=== PATIENT | female | born 1985 | race Hispanic/Latino ===

== ENCOUNTER 2020-01-11 22:12 | Emergency (ER) | payer SELFPAY ==
[2020-01-11 22:44] VITALS: O2SAT 99
--- NOTE | 2020-01-11 23:14 | ED.PDOC ---
History of Present Illness - General Chief Complaint: General Stated Complaint: my head hurts and I ache all over Time Seen by Provider: 01/11/20 22:46 Source: patient, RN notes reviewed, Vital Signs reviewed Exam Limitations: no limitations - History of Present Illness Initial Comments: Patient is a 34-year-old white female who presents with complaints of body aches, headache and sore throat. This is been ongoing for a couple of days. Nothing makes it better or worse. Patient is also complaining of subjective fevers. Timing/Duration: other - 2-3 days Severity: moderate Improving Factors: nothing Worsening Factors: nothing Associated Symptoms: cough, fever/chills, headaches, malaise, weakness Allergies/Adverse Reactions: Allergies Penicillins Allergy (Verified 01/11/20 22:35) Home Medications: Ambulatory Orders Clindamycin HCl 300 mg PO QID #40 cap 01/11/20 Review of Systems - Review of Systems Constitutional: States: see HPI, chills, fever, malaise, weakness EENTM: States: no symptoms reported, throat pain. Denies: eye pain, blurred vision, double vision Respiratory: States: see HPI, cough. Denies: short of breath, stridor, wheezing Cardiology: States: no symptoms reported. Denies: chest pain, palpitations, syncope Gastrointestinal/Abdominal: States: no symptoms reported. Denies: abdominal pain, nausea, vomiting Genitourinary: States: no symptoms reported. Denies: dysuria, frequency Musculoskeletal: States: see HPI, joint pain. Denies: neck pain Skin: States: no symptoms reported. Denies: change in color, rash Neurological: States: see HPI, headache, weakness - generalized.. Denies: tingling, tremors Endocrine: States: no symptoms reported. Denies: increased hunger, increased thirst, increased urine Hematologic/Lymphatic: States: no symptoms reported All other Systems: Reviewed and Negative Past Medical History (General) - Patient Medical History Hx Seizures: No Hx Stroke: No Hx Dementia: No Hx Asthma: No Hx of COPD: No Hx Cardiac Disorders: No Hx Congestive Heart Failure: No Hx Pacemaker: No Hx Hypertension: No Hx Thyroid Disease: No Hx Diabetes: No Hx Gastroesophageal Reflux: No Hx Renal Disease: No Hx Cancer: No Hx of HIV: No Hx Hepatitis C: No Hx MRSA: No - Vaccination History Hx Tetanus, Diphtheria Vaccination: Yes Hx Influenza Vaccination: No Hx Pneumococcal Vaccination: No Immunizations Up to Date: No - Social History Hx Tobacco Use: Yes Hx Alcohol Use: Yes Hx Substance Use: No Hx Substance Use Treatment: No Hx Depression: No Family Medical History - Family History Mother Family History: Unknown Physical Exam - Physical Exam General Appearance: Alert, Anxious, Obvious distress, Well Developed, Well Groomed, Well Hydrated, Well Nourished Eye Exam: bilateral normal Ears, Nose, Throat: hearing grossly normal, pharyngeal erythema, tonsillar swelling Neck: non-tender, full range of motion, supple Respiratory: chest non-tender, lungs clear, normal breath sounds, no respiratory distress Cardiovascular/Chest: normal peripheral pulses, regular rate, rhythm, no edema Peripheral Pulses: radial,right: 2+, radial,left: 2+ Gastrointestinal/Abdominal: normal bowel sounds, non tender, soft, no organomegaly Back Exam: normal inspection, no CVA tenderness, no vertebral tenderness Extremity: normal range of motion, non-tender, normal inspection 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 01/11/20 23:16 Patient with a positive strep test. She is allergic to penicillin. We will start her on clindamycin. I discussed this plan of care with the patient and she voices understanding and agreement. Patient's COVID testing is pending and we will call her with results. Gabriel Sorensen M.D. #[id number] - Results/Orders Results/Orders: 01/11/20 22:35 RESPIRATORY PANEL 2 Stat Laboratory Results - last 24 hr 01/11/20 22:35 Group A Strep Rapid Positive H Vital Signs 01/11/20 22:25 Temperature 97.5 F L Pulse Rate [ 99 H monitor] Respiratory 20 Rate Blood Pressure 150/103 [Left Arm] O2 Sat by Pulse 99 Oximetry Departure - Departure Clinical Impression: Strep pharyngitis Fever Qualifiers: Fever type: unspecified Qualified Code(s): R50.9 - Fever, unspecified Time of Disposition: 23:18 Disposition: Discharge to Home or Self Care Condition: Good Departure Forms: ED Discharge - Pt. Copy, Patient Portal Self Enrollment Instructions: Strep Throat (DC) Diet: resume usual diet Activity: increase activity as tolerated Referrals: Winston Sesay MD [Primary Care Provider] - 1-5 Days Prescriptions: Clindamycin HCl 300 mg PO QID #40 cap Home Medications: Ambulatory Orders Clindamycin HCl 300 mg PO QID #40 cap 01/11/20
[2020-01-11] MEDS ORDERED: CLINDAMYCIN PHOSPHATE 150 MG/ML VIAL IM ONE (23:20)
[2020-01-11 23:36] VITALS: BP 138/84; TEMP 99.2
== END 2020-01-11 23:46 | disposition home or self-care (01) ==
LOC: ER 22:12
DX: J02.0 Streptococcal pharyngitis (principal); R51.9 Headache, unspecified; Z20.828 Contact with and (suspected) exposure to other viral communicable diseases; Z88.0 Allergy status to penicillin; Z87.891 Personal history of nicotine dependence
CPT/HCPCS: 87486; 87581; 87633; 87635; 87880; J3490

== ENCOUNTER 2020-02-09 06:42 | Emergency (ER) | payer SELFPAY ==
--- NOTE | 2020-02-09 07:26 | RAD ---
EXAM: Chest,1 View HISTORY: possible covid COMPARISON: None. TECHNIQUE: Chest 1 View AP FINDINGS: Evaluation more difficult due to patient body habitus. Heart size and pulmonary vessels within normal limits. Mild bilateral diffuse lung haziness may be related to patient body habitus and overlying chest wall/breast attenuation artifact. However, underlying subsegmental atelectasis, airspace pulmonary edema, and/or atypical infection cannot be ruled out. No pleural effusion, lung mass, or pneumothorax. Bones unremarkable. IMPRESSION: Mild diffuse bilateral lung haziness may be related to patient body habitus and overlying chest wall/breast attenuation artifact. However, underlying subsegmental atelectasis, airspace pulmonary edema, and/or atypical infection cannot be ruled out. Follow up chest radiograph 2 views (PA and lateral) in upright position with full inspiration in radiology department may be helpful. Electronically signed by: Noe Cosme MD 02/09/2020 7:25 AM [facility]
--- NOTE | 2020-02-09 07:59 | ED.PDOC ---
History of Present Illness - General Chief Complaint: Respiratory Problem Stated Complaint: SOB, cough, SHOEMAKER, chest tightness, sore throat Time Seen by Provider: 02/09/20 06:52 Source: patient Exam Limitations: no limitations - History of Present Illness Initial Comments: The patient is a 34-year-old female presented emergency room secondary to feeling of cough, sore throat and a mild runny nose as well as some mild body aches for last couple of days. The patient had fairly extensive coronavirus exposure about 5 days ago for a period of 6 hours. No hypoxia. No respiratory distress. No altered mental status. No rash. No syncope or near syncope. She does have a mild headache. She is alert and oriented x4. No evidence of encephalitis or meningitis otherwise. Timing/Duration: other - Couple of days Severity: mild Improving Factors: nothing Worsening Factors: nothing Associated Symptoms: cough, fever/chills - Reports low-grade, malaise Allergies/Adverse Reactions: Allergies Penicillins Allergy (Verified 01/11/20 22:35) Home Medications: Ambulatory Orders Clindamycin HCl 300 mg PO QID #40 cap 01/11/20 Azithromycin 500 mg PO DAILY #7 tab 02/09/20 Review of Systems - Review of Systems Constitutional: States: fever, malaise EENTM: States: nose congestion, throat pain Respiratory: States: cough Cardiology: States: no symptoms reported Gastrointestinal/Abdominal: States: no symptoms reported Genitourinary: States: no symptoms reported Musculoskeletal: States: no symptoms reported Skin: States: no symptoms reported Neurological: States: headache Endocrine: States: no symptoms reported All other Systems: No Change from Baseline Past Medical History (General) - Patient Medical History Hx Seizures: No Hx Stroke: No Hx Dementia: No Hx Asthma: No Hx of COPD: No Hx Cardiac Disorders: No Hx Congestive Heart Failure: No Hx Pacemaker: No Hx Hypertension: No Hx Thyroid Disease: No Hx Diabetes: No Hx Gastroesophageal Reflux: No Hx Renal Disease: No Hx Cancer: No Hx of HIV: No Hx Hepatitis C: No Hx MRSA: No Surgical History: cholecystectomy, other - Vaccination History Hx Tetanus, Diphtheria Vaccination: Yes Hx Influenza Vaccination: No Hx Pneumococcal Vaccination: No - Social History Hx Tobacco Use: Yes Hx Alcohol Use: No Hx Substance Use: No Hx Substance Use Treatment: No Hx Depression: No - Female History Patient is a Female of Child Bearing Age (10 -59 yrs old): Yes Patient : No Family Medical History - Family History Mother Family History: Unknown Living Status: Still Living Hx Family Hypertension: Yes Hx Family Diabetes: Yes Hx Family Cancer: Yes Physical Exam - Physical Exam General Appearance: Alert, Comfortable, No apparent distress Eye Exam: bilateral normal Ears, Nose, Throat: hearing grossly normal, nasal congestion, pharyngeal erythema Neck: full range of motion, supple Respiratory: lungs clear, normal breath sounds, no respiratory distress, no accessory muscle use Cardiovascular/Chest: normal peripheral pulses, regular rate, rhythm, no edema Peripheral Pulses: radial,right: 2+, radial,left: 2+ Gastrointestinal/Abdominal: normal bowel sounds, non tender, soft Rectal Exam: deferred Back Exam: no CVA tenderness, no vertebral tenderness Extremity: normal range of motion, non-tender, normal inspection, no pedal edema, normal capillary refill 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 Due to allergies she will be started on azithromycin for 7 days. Due to her known coronavirus exposure she does still need to isolate for at least 3-4 more days. This is due to the fact that she can still turn positive from the exposure earlier in the week. If the patient is obviously not improving over the next week then repeat coronavirus testing may be warranted. She is to keep her self well-hydrated. Motrin Tylenol can be used for discomfort, fever and headache. No hypoxia or respiratory distress. Chest x- ray is reassuring. ER warnings are given. [email or web address] fowler [id number] - Results/Orders Results/Orders: Rapid coronavirus test is negative. Rapid strep test is positive. Chest x-ray shows no focal infiltrate. There is diffuse haziness which may be due to body habitus. See report for details. Departure - Departure Clinical Impression: Strep throat, Exposure to 2019 novel coronavirus Disposition: Discharge to Home or Self Care Condition: Fair Departure Forms: ED Discharge - Pt. Copy, Patient Portal Self Enrollment Instructions: Strep Throat (DC) Diet: regular diet Activity: increase activity as tolerated Referrals: Winston Sesay MD [Primary Care Provider] - 1-2 Weeks Prescriptions: Azithromycin 500 mg PO DAILY #7 tab Home Medications: Ambulatory Orders Clindamycin HCl 300 mg PO QID #40 cap 01/11/20 Azithromycin 500 mg PO DAILY #7 tab 02/09/20 Additional Instructions: The patient is a 34-year-old female presents emergency room due to what appears to be strep throat. Due to allergies she will be started on azithromycin for 7 days. Due to her known coronavirus exposure she does still need to isolate for at least 3-4 more days. This is due to the fact that she can still turn positive from the exposure earlier in the week. If the patient is obviously not improving over the next week then repeat coronavirus testing may be warranted. She is to keep her self well-hydrated. Motrin Tylenol can be used for discomfort, fever and headache. No hypoxia or respiratory distress. Chest x- ray is reassuring. ER warnings are given.
[2020-02-09 08:05] VITALS: BP 98/60; O2SAT 99
[2020-02-09 08:14] VITALS: TEMP 98.6
== END 2020-02-09 08:15 | disposition home or self-care (01) ==
LOC: ER 06:42
DX: J02.0 Streptococcal pharyngitis (principal); Z20.828 Contact with and (suspected) exposure to other viral communicable diseases; Z87.891 Personal history of nicotine dependence; Z88.0 Allergy status to penicillin